=== PATIENT | female | born 1985 | race Caucasian/White ===

== ENCOUNTER → 2017-11-14 | Outpatient (CLI) | payer BC ==
--- NOTE | 2017-11-14 16:43 | CT ---
EXAMINATION TYPE: CT chest w con DATE OF EXAM: 11/14/2017 COMPARISON: NONE HISTORY: Patient complains of right lower lobe/rib pain x1 month. CT DLP: 839 mGycm. Automated Exposure Control for Dose Reduction was Utilized. TECHNIQUE: CT scan of the thorax is performed following with IV Contrast, patient injected with 100 mL of Isovue 300. FINDINGS: LUNGS: Minimal subsegmental multifocal atelectasis is seen. The lungs are grossly clear, there is no concerning parenchymal mass or nodule identified. There is no pleural effusion or pneumothorax seen . The tracheobronchial tree is patent. MEDIASTINUM: Residual thymus is seen as strand-like density within the superior anterior mediastinum. There are no greater than 1 cm hilar or mediastinal lymph nodes. No pericardial effusion is seen. OTHER: 9 mm hepatic cyst is present within the liver. The spleen is enlarged measuring 15.3 cm in stephen gitudinal dimension. Healing fracture deformity is present of the anterior lateral 11th rib. This is nondisplaced right Remainder the osseous structures appear intact. IMPRESSION: 1. Nondisplaced healing fracture of the anterior lateral 11th right rib. 2. Incidentally noted splenomegaly. 3. Multifocal subsegmental atelectasis with no focal consolidation to suggest pneumonia.
== END | disposition home or self-care (01) ==
LOC: RADCTMAIN 15:50
PROVIDERS: ATTEND Family Medicine
DX: S22.31XD Fracture of one rib, right side, subsequent encounter for fracture with routine healing (principal); J98.11 Atelectasis
CPT/HCPCS: 71260; Q9967